=== PATIENT | male | born 1930 | race Caucasian/White ===

== ENCOUNTER → 2017-12-30 | Outpatient (CLI) | payer MEDICARE ==
[2017-12-30] MEDS: BARIUM SULFATE 40% (APPLE) 148 GM PWD. PO ×2 (14:05)
== END | disposition home or self-care (01) ==
LOC: RAD 13:47
DX: R47.02 Dysphasia (principal)
CPT/HCPCS: 74230; 92526-GN; 92611-GN; G8996-CI-GN; G8997-CI-GN; G8998-CI-GN

== ENCOUNTER → 2018-03-03 | Outpatient (CLI) | payer MEDICARE | END | disposition home or self-care (01) | LOC: ECHO 08:52 | DX: I08.3 Combined rheumatic disorders of mitral, aortic and tricuspid valves (principal); I27.20 Pulmonary hypertension, unspecified; R60.0 Localized edema | CPT/HCPCS: 93306 ==